=== PATIENT | male | born 1935 | race Caucasian/White ===

== ENCOUNTER 2016-10-09 20:44 | Emergency (ER) | payer MEDICARE ==
[~2016-10-09] VITALS: Ht 195.6 cm; Wt 113.6 kg
[~2016-10-09 20:44] MED LIST: AMIO400T4 PO; APIX2.5T PO; ASPI-973 PO; ATOR10TA66 PO; FLUO10CA20 PO; HYD500 PO; HYDR500C2 PO; LACT1CAP73 PO; METO-274 PO; ONDA4TAB6 PO; POLY17PO6 PO; SENN-133 PO
[2016-10-09 21:02] VITALS: BP 117/83; PULSE 118; RESP 20; O2SAT 92
[2016-10-09 22:12] LABS: Mean Corpuscular Hemoglobin 43.2 pg (27.0-35.0); Mean Corpuscular Volume 134.6 fL (81-100); Platelet Count 510 bil/L (150-400)
[2016-10-09 22:31] LABS: BASOPHILS % (AUTO) 1.6 % (0-3); EOSINOPHILS % (AUTO) 1.4 % (0-5); MONOCYTES % (AUTO) 7.3 % (4-12); NEUTROPHILS % (AUTO) 86.5 % (40-74)
[2016-10-09 22:35] LABS: Magnesium 2.2 mg/dL (1.6-2.6)
--- NOTE | 2016-10-09 23:13 | ED.REPORT ---
HPI-Extremity Problem Lower Date of Service Oct 09, 2016 ED Provider: Beto Saldana MD Pt is an 81 y/o male anticoagulated on Warfarin w/ a hx of a-fib, polycythemia, gout, CHF, presenting to the ED c/o right great toe pain onset 1 month ago, increased within the past 2 days. His daughter who is a nurse thought that an area over his right great toe looked concerning and told him to have it checked out. He has no history of diabetes. Pt denies fever, vomiting, numbness, weakness, SOB, cough. He has had infections of the foot previously, but not like this. Nursing Notes Stated Complaint: RT BIG TOE PAIN Chief Complaint: Extremity Trauma Nursing Notes Reviewed: Yes Allergies: Coded Allergies: No Known Allergies (Verified Allergy, Unknown, 05/13/16) Scheduled Amiodarone (Amiodarone) 400 Mg Tablet 200 MG PO DAILY Apixaban (Eliquis) 2.5 Mg Tablet 2.5 MG PO BID Aspirin (Aspirin) 81 Mg Tablet 81 MG PO DAILY Atorvastatin Calcium (Atorvastatin Calcium) 10 Mg Tablet 10 MG PO HS Cephalexin (Keflex) 500 Mg Capsule 500 MG PO QID Fluoxetine (Fluoxetine) 10 Mg Capsule 10 MG PO DAILY Hydroxyurea (Hydrea) 500 Mg Capsule 500 MG PO HS M-FR 1000mg am, 500mg hs Hydroxyurea (Hydroxyurea) 500 Mg Capsule 500 MG PO SAT AND SUN Lactobacillus Combo No.11 (Probiotic) 1 Each Cap.sprink 1 EACH PO DAILY Metoprolol Succinate ER (Metoprolol Succinate ER) 100 Mg Tab.er.24h 100 MG PO HS Polyethylene Glycol 3350 (Miralax) 17 Gm Powd.pack 17 GM PO prn Sulfamethoxazole/Trimeth 800-160 mg (Bactrim DS) 1 Each Tablet 1 TABLET PO BID Scheduled PRN Ondansetron (Zofran) 4 Mg Tablet 4-8 MG PO Q8H PRN PRN For Nausea Sennosides (Senna) 8.6 Mg Tablet 17.2 MG PO BID PRN PRN For Constipation General Time Seen by MD: 23:11 Chief Complaint Other (right great toe pain) Hx Obtained From: Patient Arrived By: Wheelchair Onset Occurred: 2 days ago Symptom Duration: Since onset Location: : Toe right 1 Quality: Painful Severity: Current: Moderate Severity: Maximum: Moderate Past Medical History Past Medical History Notes: 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 Otherwise lives with family. Alcohol Use: Denies alcohol use Drug Use: Denies drug use Other Social History: Good social support, Local resident Ambulatory Status Independent Review of Systems Constitutional: Denies: Chills, Fever Musculoskeletal: Reports: Extremity pain, Denies: Myalgia Skin: Reports Rash, Denies Diaphoresis Neurologic: Denies: Numbness, Weakness Complete sys rev & neg: except as marked. Respiratory: Denies: Non-productive cough, Shortness of breath Cardiovascular: Denies: Chest pain, Dyspnea on exertion GI: Denies: Abdominal pain, Diarrhea, Nausea, Vomiting Physical Exam Initial Vital Signs Vital Signs (First) Date Time Temp Pulse Resp B/P Pulse Ox O2 Delivery O2 Flow Rate FiO2 10/09/16 21:02 36.8 118 20 117/83 92 10/10/16 01:06 Room Air Initial VS: Reviewed, Vital signs abnormal Head / Eyes: Atraumatic, Normocephalic, PERRL ENT: Mucous membranes moist, Conjunctiva normal, No scleral icterus Neck: Supple, Full range of motion Respiratory: No respiratory distress Cardiovascular: Intact distal pulses Abdomen / GI: Soft, No distention Upper Extremities: Vascular intact, Neuro intact, No swelling, No tenderness Neurologic: Alert, Oriented, Nonfocal Psychiatric: Mood/affect normal, Behavior normal, Normal thought content Lower Extremity / Pelvis / MS: No deformity, Neurologic intact, Vascular intact , No compartment syndrome Ankle / Foot: No deformity, Neurologic intact, Vascular intact, No compartment syndrome R great toe: Good cap refill. FROM without tenderness. Mild erythema over superficial distal aspect of R great toe with no ulcer. No warmth, no purulent discharge. Bilateral chronic pedal edema Interpretation & Diagnostics Lab Results Interpretation Result Diagram: 10/09/16 2200 10/09/16 2200 Test 10/09/16 22:00 White Blood Count 8.9th/mm3 (3.8-10.1) Red Blood Count 2.57mil/mm3 (4.40-5.80) Hemoglobin 11.1g/dL (13.8-17.2) Hematocrit 34.6% (41.0-50.0) Mean Corpuscular Volume 134.6fL (81-100) Mean Corpuscular Hemoglobin 43.2pg (27.0-35.0) Mean Corpuscular Hemoglobin Concent 32.1% (32.0-37.0) Red Cell Distribution Width 14.9% (12.3-15.4) Platelet Count 510bil/L (150-400) Neutrophils (%) (Auto) 86.5% (40-74) Lymphocytes (%) (Auto) 2.9% (14-46) Monocytes (%) (Auto) 7.3% (4-12) Eosinophils (%) (Auto) 1.4% (0-5) Basophils (%) (Auto) 1.6% (0-3) Sodium Level 140mEq/L (134-144) Potassium Level 4.7mEq/L (3.5-5.2) Chloride Level 104mEq/L (97-108) Carbon Dioxide Level 21mmol/L (18-29) Blood Urea Nitrogen 32mg/dL (8-27) Creatinine 1.68mg/dL (0.76-1.27) Estimat Glomerular Filtration Rate 42mL/min (>59) Glucose Level 116mg/dL (60-99) Calcium Level 8.4mg/dL (8.5-10.1) Magnesium Level 2.2mg/dL (1.6-2.6) Total Bilirubin 0.8mg/dL (0.0-1.2) Aspartate Amino Transf (AST/SGOT) 21U/L (0-50) Alanine Aminotransferase (ALT/SGPT) 29U/L (0-44) Alkaline Phosphatase 141U/L (25-160) Total Protein 5.9g/dL (6.4-8.4) Albumin 3.8g/dL (3.4-5.0) Hold Khan Top Tube Received (Received) X-Ray Interpretation Xray Interpretation: No signs of osteomyelitis Study Performed: Toes, right Interpretation / Wet Read by: Wet read ED physician Interpretation: Normal exam, No fracture/dislocation Re-Eval/Medical Decision Med Decision/Clinical Course Mild right great toe cellulitis. No ulcer. No evidence of osteomyelitis. Vital Signs are stable. No signs of sepsis. We will treat with oral Bactrim and Keflex first dose given here. 7 day course. Recommend follow-up with primary doctor tomorrow for reevaluation. Has appointment with wound care on Tuesday as well. Return precautions given regarding any new or worsening symptoms, worsening pain, redness, swelling, discharge, any other new or worsening symptoms. Re-Evaluation/Progress : Time of Eval: 00:28 Re-Evaluation/Progress Note: Pt rechecked. Informed pt of plan for treatment. Pt understands and agrees with plan for treatment. F/U instructions and RTER warnings given. All questions addressed. Counseled Regarding: Diagnosis, Lab results, Need for follow-up, When/why to return to ED Discharge & Departure Impression: Primary Impression: Cellulitis of great toe of right foot Disposition: Home Discharge Condition All VS Reviewed: Yes Condition: Stable Patient Instructions: Cellulitis (ED) Additional Instructions: The x-ray was normal. Take Bactrim and Keflex as directed to fight infection. Return to the emergency department if you develop worsening pain, vomiting, spreading rash, numbness or weakness of your toe, high fever, or for other concerning symptoms. Follow-up with a medical provider tomorrow. Go to Urgent Care or the emergency department. Referrals: [facility] (PCP) Dominiqueibluís Attestation Portions of this note were transcribed by Damian Felix. I, Dr. Saldana, personally performed the history, physical exam and medical decision-making; I reviewed and confirmed the accuracy of the information in the transcribed note. Signed by Aamir Mcdaniel, 10/09/16 - 1181 copies to: [facility] Beto Saldana MD Oct 09, 2016 23:13 DAMIAN FELIX Oct 09, 2016 23:41
[2016-10-09] MEDS ORDERED: Trimethoprim-Sulfa 160 mg-800 mg Tablet PO ONE (23:45)
[2016-10-10] MEDS ORDERED: CEPH-512 PO (00:29)
[2016-10-10] MEDS ORDERED: SULF1TAB7 PO (00:29)
[2016-10-10 01:06] VITALS: BP 120/82; PULSE 100; RESP 18; O2SAT 96
--- NOTE | 2016-10-10 07:58 | DRSVH ---
PROCEDURE: X-RAY TOESS, TWO VIEWS INDICATIONS: R great toe cellulitis r/o osteo TECHNIQUE: 3 views of the right great toe(s) acquired. COMPARISON: None. FINDINGS: Bones: Bones are osteopenic. There is no discrete cortical thinning or periosteal reaction of the dis aaron phalanx of the great toe. Soft tissues: Soft tissue swelling is present at the great toe. IMPRESSION: No discrete suspicious bony findings to suggest acute osteomyelitis of the distal aspect of the great toe. However, the acute phases of osteomyelitis are poorly characterized on plain film. If there is high clinical suspicion for acute osteomyelitis, consider contrast-enhanced MRI of the fo ot. Dictated by: Tita Brewer M.D. on 10/10/2016 at 7:54 Approved by: Tita Brewer M.D. on 10/10/2016 at 7:56
[2016-10-22] MEDS ORDERED: HYDR-4003 PO (16:07)
[2016-10-22] MEDS ORDERED: LACT1CAP65 PO (16:07)
[2016-10-22] MEDS ORDERED: ZYL100 PO (16:07)
[2016-10-22] MEDS ORDERED: FUR20 PO (16:07)
[2016-10-22] MEDS ORDERED: NAPR220C11 PO (16:07)
[2016-10-22] MEDS ORDERED: CALC500T9 PO (16:07)
[2016-11-19] MEDS ORDERED: SPIR25TA3 PO (15:50)
== END 2016-10-10 01:07 | disposition home or self-care (01) ==
LOC: SED 20:44
DX: L03.031 Cellulitis of right toe (principal); I48.91 Unspecified atrial fibrillation; I50.9 Heart failure, unspecified; I10 Essential (primary) hypertension; Z87.448 Personal history of other diseases of urinary system; Z87.39 Personal history of other diseases of the musculoskeletal system and connective tissue; Z86.2 Personal history of diseases of the blood and blood-forming organs and certain disorders involving the immune mechanism; Z86.73 Personal history of transient ischemic attack (TIA), and cerebral infarction without residual deficits; Z87.891 Personal history of nicotine dependence; Z85.828 Personal history of other malignant neoplasm of skin; Z79.01 Long term (current) use of anticoagulants; Z79.82 Long term (current) use of aspirin